=== PATIENT | male | born 1965 | race Hispanic/Latino ===

== ENCOUNTER 2017-06-14 10:14 | Outpatient (CLI) | payer OTHER ==
--- NOTE | 2017-06-14 14:56 | Ultrasound Report ---
ULTRASOUND ABDOMEN LIMITED INDICATION: Nonspecific abnormal results of function study of liver. COMPARISON: 03/30/2013 CT. FINDINGS: Right upper quadrant sonography now demonstrates diffusely echogenic liver with grossly preserved contours. No definite focal suspicious lesions or biliary dilatation. No pericholecystic fluid or positive sonographic Mcclendon's sign. A 5 mm non-shadowing echogenicity near the gallbladder neck may represent a polyp. Presumed gallbladder technical artifact versus sludge. Gallbladder wall thickness is 2.6 mm. Common bile duct is 3.8 mm. Imaged pancreas, nonaneurysmal abdominal aorta, IVC and the right kidney appear within normal limits. CONCLUSION: A 5 mm gallbladder possible polyp and new fatty hepatic infiltration since March 2013 without acute sonographic abnormality, as described. Please correlate. Thank you for the opportunity to participate in this patient's care.
== END 2017-06-14 10:15 | disposition home or self-care (01) ==
LOC: US 10:14
PROVIDERS: ATTEND Internal Medicine
DX: K76.0 Fatty (change of) liver, not elsewhere classified (principal); R94.5 Abnormal results of liver function studies
CPT/HCPCS: 76705